=== PATIENT | male | born 1965 | race Caucasian/White ===

== ENCOUNTER 2023-02-04 10:57 | Emergency (ER) | payer BC ==
[2023-02-04 11:11] VITALS: BP 110/66; PULSE 87; RESP 18; TEMP 97.8; BMI 29.2
[2023-02-04] MEDS ORDERED: ACETAMINOPHEN 500 MG TABLET (FP) PO ONE (12:28)
[2023-02-04] MEDS ORDERED: LIDOCAINE 5% TOPICAL PATCH TP ONE (12:28)
[2023-02-04] MEDS ORDERED: LIDOCAINE 4% PATCH TP ONE (13:03)
[2023-02-04] MEDS ORDERED: ACETAMINOPHEN 325 MG TABLET (FP) ONE (13:03)
[2023-02-04] MEDS ORDERED: KETOROLAC TROMETHAMINE 30 MG/1 ML VIAL IM ONE (14:13)
[2023-02-04] MEDS ORDERED: KETOROLAC TROMETHAMINE 30 MG/1 ML VIAL ONE (14:15)
[2023-02-04] MEDS ORDERED: LIDOCAINE PATCH REMOVAL MC SCH (22:00)
== END 2023-02-04 15:03 | disposition home or self-care (01) ==
LOC: JER 10:57
PROC: 3E0233Z Introduction of Anti-inflammatory into Muscle, Percutaneous Approach (ICD-10-PCS; principal; 2023-02-04)
DX: M25.511 Pain in right shoulder (principal); M25.562 Pain in left knee; W11.XXXA Fall on and from ladder, initial encounter; Y99.0 Civilian activity done for income or pay; Y92.9 Unspecified place or not applicable
CPT/HCPCS: 70450-TC; 71045-TC-FY; 72125-TC; 72170-TC-FY; 73030-TC-RT-FY; 73200-TC-RT; 73562-TC-LT-FY; 99284-25

== ENCOUNTER 2023-04-06 20:40 | Emergency (ER) | payer BC ==
[2023-04-06 20:53] VITALS: BP 163/98; PULSE 93; RESP 16; TEMP 98.2; BMI 32.5
== END 2023-04-07 06:00 | disposition left against medical advice (07) ==
LOC: JERFT 20:40 → JER 20:40
DX: M25.572 Pain in left ankle and joints of left foot (principal); W00.0XXA Fall on same level due to ice and snow, initial encounter; Y92.9 Unspecified place or not applicable
CPT/HCPCS: 73610-TC-LT-FY; 73630-TC-LT; 99283-25

== ENCOUNTER 2023-04-07 06:29 | Emergency (ER) | payer BC ==
[2023-04-07 06:32] VITALS: BP 146/71; PULSE 78; RESP 15; TEMP 97.9; BMI 32.5
[2023-04-07] MEDS ORDERED: KETOROLAC TROMETHAMINE 30 MG/1 ML VIAL IM ONE (07:50)
[2023-04-07] MEDS ORDERED: KETOROLAC TROMETHAMINE 30 MG/1 ML VIAL ONE (08:44)
== END 2023-04-07 08:51 | disposition home or self-care (01) ==
LOC: JER 06:29
PROC: 3E0233Z Introduction of Anti-inflammatory into Muscle, Percutaneous Approach (ICD-10-PCS; principal; 2023-04-07)
PROC: 2W3RX1Z Immobilization of Left Lower Leg using Splint (ICD-10-PCS; 2023-04-07)
DX: S82.832A Other fracture of upper and lower end of left fibula, initial encounter for closed fracture (principal); M79.672 Pain in left foot; M25.572 Pain in left ankle and joints of left foot; M25.472 Effusion, left ankle; W00.0XXA Fall on same level due to ice and snow, initial encounter; Y93.01 Activity, walking, marching and hiking
CPT/HCPCS: 99284-25

== ENCOUNTER 2023-08-15 23:56 | Emergency (ER) | payer BC ==
[2023-08-16 00:02] VITALS: BMI 32.5
[2023-08-16 00:35] VITALS: BP 128/68; PULSE 81; RESP 20; TEMP 98.2
[2023-08-16] MEDS ORDERED: ACETAMINOPHEN INJECTION 100 ML IVPB ONE (00:38)
[2023-08-16] MEDS ORDERED: METOCLOPRAMIDE HCL INJECTION 10 MG/2 ML VIAL ONE (00:38)
[2023-08-16] MEDS: SODIUM CHLORIDE 0.9% 500 ML INFUS.BAG IV ONE (01:03)
[2023-08-16] MEDS: ACETAMINOPHEN 1000 MG/100 ML BAG IVPB ONE (01:03)
[2023-08-16 01:11] LABS: BASO % 1.4 % (0-2.0); EOS % 4.8 % (0-4.5); HEMATOCRIT 41.7 % (35.4-49); HEMOGLOBIN 14.4 GM/dL (11.7-16.9); LYMPH % 46.7 % (8-40); MCHC 34.4 g/dl (32.0-35.9); MEAN CELL VOLUME 90.1 fl (80-96); MEAN PLT VOLUME 8.5 fl (7.5-11.1); MONO % 9.1 % (3.8-10.2); PLATELET COUNT 160 10^3/uL (134-434); RBC 4.63 M/mm3 (4.00-5.60); RDW 13.8 % (11.9-15.9); WHITE BLOOD COUNT 12.4 K/mm3 (4.0-10.0)
[2023-08-16 01:16] LABS: INR 1.54 (0.83-1.09); PROTHROMBIN TIME (PATIENT) 17.2 SEC (9.7-13.0)
[2023-08-16 01:18] LABS: ACTIVATED PTT 32.5 SECONDS (25.2-36.5)
[2023-08-16] MEDS: METOCLOPRAMIDE HCL INJECTION 10 MG/2 ML VIAL IVPUSH ONE (01:18)
[2023-08-16 01:19] LABS: POTASSIUM 3.7 mmol/L (3.5-5.1)
[2023-08-16 01:21] LABS: ALBUMIN 3.6 g/dl (3.4-5.0); BLOOD UREA NITROGEN 12.7 mg/dL (7-18); CALCIUM 8.8 mg/dL (8.5-10.1)
[2023-08-16 01:25] LABS: CREATININE 0.6 mg/dL (0.55-1.3)
[2023-08-16 01:26] LABS: TOT PROT 7.4 g/dl (6.4-8.2)
== END 2023-08-16 02:51 | disposition home or self-care (01) ==
LOC: JER 23:56
PROC: 3E033NZ Introduction of Analgesics, Hypnotics, Sedatives into Peripheral Vein, Percutaneous Approach (ICD-10-PCS; principal; 2023-08-16)
PROC: 3E033GC Introduction of Other Therapeutic Substance into Peripheral Vein, Percutaneous Approach (ICD-10-PCS; 2023-08-16)
DX: R51.9 Headache, unspecified (principal); Y99.0 Civilian activity done for income or pay; Z20.822 Contact with and (suspected) exposure to COVID-19
CPT/HCPCS: 0241U-QW; 36415; 70450-TC; 80053; 84484; 85025; 85610; 85730; 93005; 93010; 99285-25; J0131